=== PATIENT | female | born 1965 | race Caucasian/White ===

== ENCOUNTER → 2016-08-11 | Day surgery (SDC) | payer OTHER ==
[~2016-08-11] VITALS: Ht 154.9 cm; Wt 50.9 kg
[~2016-08-11] MED LIST: *RESP: ALBUTEROL 2.5 MG/3 ML NEB (PRN) PERIprocedural Use ONLY NEB ONE; ALBU0.08 NEB; ALBUAER3 INH; ALPR.5 PO; AMLO10 PO; CHLORHEXIDINE GLUCONATE 2 % 1 PACK (2 CLOTHS) TOP ONE; DILA100C PO; DO NOT ADM ANY ANTICOAGULANT DRUGS XX PRN; INSULIN HUMAN REGULAR 1,000 UNITS/10 ML VIAL SQ PRN; LACTATED RINGER'S 1000 ML INJ 1,000 ML IV ONE; LACTATED RINGER'S 1000 ML IV SCH; LEVA500T PO; LEVOFLOXACIN 500 MG PREMIX INJ 100 ML IV SCH; LISI-515 PO; MACR100C2 PO; METO50TA PO; METOPROLOL TARTRATE 25 MG TAB PO PRN; MONT10TA2 PO; ONDANSETRON HCL 4 MG/2 ML VIAL IV PUSH ONE; ONDANSETRON HCL 4 MG/2 ML VIAL IV PUSH PRN; PERC5TAB12 PO; PHEN0.4T PO; PHENYLEPH/NS 1000 MCG/10 ML SYR IV ONE; POVIDONE IODINE 7.5% SCRUB 118 ML BOTTLE TOPICAL ONE; PROPOFOL 200 MG/20 ML AMP IV ONE; SODIUM CHLORID 0.9% 500 ML IV SCH; VENL100T PO; XANA1TAB2 PO; ePHEDrine/NS 25 MG/5 ML SYR IV ONE; fentaNYL CITRATE 250 MCG/5 ML AMP ONE; oxyCODONE/ACETAMINOPHEN 5 MG/325 MG TAB PO PRN
[2016-08-11 11:28] VITALS: BP 127/80; PULSE 57; RESP 18; TEMP 97.7; O2SAT 98
[2016-08-11 11:29] LABS: AUTOMATED NEUTROPHIL # 5.1 TH/MM3 (1.8-7.7); BASOPHIL # 0.1 TH/MM3 (0-0.2); BASOPHIL % 0.8 % (0.0-2.0); EOSINOPHIL # 0.1 TH/MM3 (0-0.4); EOSINOPHIL % 1.4 % (0.0-4.0); HEMATOCRIT 43.2 % (35.0-46.0); HEMO FLAGS DIFF FINAL; LYMPH % 33.8 % (9.0-44.0); LYMPHOCYTE # 2.9 TH/MM3 (1.0-4.8); MEAN CELL VOLUME 89.5 FL (80.0-100.0); MEAN CORPUSCULAR HEMOGLOBIN 30.8 PG (27.0-34.0); MEAN CORPUSCULAR HGB CONC 34.4 % (32.0-36.0); MONO % 5.4 % (0.0-8.0); NEUT % 58.6 % (16.0-70.0); PLATELET COUNT 259 TH/MM3 (150-450); RED BLOOD COUNT 4.83 MIL/MM3 (4.00-5.30); RED CELL DISTRIBUTION WIDTH 14.4 % (11.6-17.2); WHITE BLOOD COUNT 8.7 TH/MM3 (4.0-11.0)
--- NOTE | 2016-08-11 14:15 | EKG ---
Date Performed: 08/11/2016 Time Performed: 11:33:17 PTAGE: 50 years EKG: Sinus rhythm POSSIBLE LEFT ATRIAL ENLARGEMENT INDETERMINATE AXIS BORDERLINE ECG PREVIOUS TRACING : 02/05/2015 10.40 Compared to prior tracing no significant change DOCTOR: Edgardo Pat Interpretating Date/Time 08/11/2016 14:14:32
--- NOTE | 2016-08-11 16:17 | PD.OP ---
Operative Report Date of Surgery: Aug 11, 2016 Preoperative Diagnosis: (1) Lesion of bladder Postoperative Diagnosis: (1) Lesion of bladder Procedure: Cystoscopy with fulguration and biopsy Anesthesia: General Surgeon: Oskar Stevens High Wire Artist(s): None Operation and Findings: Indication for procedure: Case of a pleasant 50-year-old female with a history of right distal ureteral CA who recently was noted to have several small lesions involving the bladder dome on cystoscopic evaluation. She presents today for cystoscopy, biopsy and fulguration. Operative procedure in detail: Patient was brought to the operating room suite and placed supine on the cystoscopy table. She was then placed under general anesthesia. She was then repositioned in the dorsolithotomy position and prepped and draped in normal sterile fashion. After appropriate timeout was undertaken I proceeded with cystoscopic evaluation utilizing the rigid cystoscope with the 20 Irish sheath and the 30 lens. Once again she was noted to have several slightly raised erythematous lesions involving the bladder dome. The cup biopsy forcep was utilized and 2 biopsies of this site were taken. The biopsy sites and the remainder of the small lesions were then fulgurated with the Bugbee electrode. The bladder was drained of irrigant fluid and the cystoscope was withdrawn. A 16 Irish 5 cc Boyd was then placed and connected to gravity drainage. Patient tolerated the procedure without complications and was transferred to the PACU in satisfactory condition. Oskar Stevens MD Aug 11, 2016 16:17
[2016-08-11 18:00] VITALS: BP 110/78; PULSE 70; RESP 20; TEMP 97.8; O2SAT 99
== END | disposition home or self-care (01) ==
LOC: HSDC 10:39
PROVIDERS: ATTEND Urology
DX: N32.9 Bladder disorder, unspecified (principal); N30.20 Other chronic cystitis without hematuria; I10 Essential (primary) hypertension
CPT/HCPCS: 00910; 52224; 85025; 88305; 93005; J1956; J2370; J2405; J3010; J7120; J7613; 94664

== ENCOUNTER 2016-10-13 06:21 | Day surgery (SDC) | payer OTHER ==
--- NOTE | 2016-10-07 10:29 | MH ---
cc: MAYURI SCHERER BLANCA C. M.D. DATE OF ADMISSION 10/13/2016 CHIEF COMPLAINT The patient will come for CT-guided right lung biopsy. HISTORY OF PRESENT ILLNESS Ms. Curtis is a 50-year-old female with a history of COPD, hypertension, seizure disorder, history of CA of the urethra. She has a surgery done before. The patient was recently admitted at [facility]. She had a CT scan of the chest done which shows three 2.2 cm pulmonary nodules in the right upper lobe and is suspicious for malignancy. She has a tiny pulmonary nodule in the right upper lobe measuring 3 mm and she has underlying central lobular emphysema. She has no hemoptysis. No DVT or pulmonary embolism. PAST MEDICAL HISTORY History of: 1. COPD 2. Hypertension 3. Seizure disorder all her life. 4. History of urethral surgery done by Dr. Stevens. 5. History of breast cyst surgery 6. History of lazy eye surgery MEDICATIONS She takes: 1. Albuterol nebulizer treatment with Qvar inhaler 2. Singulair 10 mg a day 3. Lisinopril 40 mg a day 4. Norvasc 10 mg a day 5. Metoprolol 50 mg a day 6. Dilantin 100 mg three times a day 7. Cymbalta once a day 8. Diclofenac once a day 9. Folic acid once a day ALLERGIES Allergic to KEFLEX. SOCIAL HISTORY She has 35 year history of smoking one and a half pack a day. No alcohol use. She uses marijuana. She worked in 1991. She is not working anymore. FAMILY HISTORY She has been for two to three years. She has three children. She has three brothers, one was stillbirth. She has two sisters. Mother with emphysema. Father is alive. REVIEW OF SYSTEMS She has lost 40 pounds of weight, has fatigue, mild shortness of breath, has joint pain. No DVT or pulmonary embolism. PHYSICAL EXAMINATION This is a somewhat well-nourished male not in acute distress. VITAL SIGNS: Blood pressure 140/72, heart rate 110, respirations 16, weight 108, oxygen saturation 96%. HEENT: Examination unremarkable. NECK: Supple. JVP not raised. CHEST: Equal breath, no rhonchi. CARDIOVASCULAR: S1 and S2 normal. ABDOMEN: Benign. EXTREMITIES: No edema. IMPRESSION 1. Right upper lobe 2.2 x 1.7 cm pulmonary nodule suspicious for malignancy. 2. Recent fall. 3. COPD 4. Nicotine use 5. Seizure disorder 6. Hypertension PLAN I discussed with the patient she will need a CT-guided biopsy of the lung. Explained the procedure and the complications including complication of anesthesia, pneumothorax requiring chest tube, bleeding, complication due to blood vessels, lungs nerves, arrhythmia, hypoxia. She understands very well and wants to proceed. We will scheduled her at [facility] for CT-guided biopsy. MD SHRADDHA Reeder/MICHAEL /11:21 PM /10:27 AM
[~2016-10-13] VITALS: Ht 154.9 cm; Wt 49.1 kg
[2016-10-13] VITALS (9 sets, daily range): BP systolic 111–178; BP diastolic 74–90; PULSE 51–72; RESP 14–20; TEMP 97.6–98.1; O2SAT 93–100
[~2016-10-13 06:21] MED LIST changes: -*RESP: ALBUTEROL 2.5 MG/3 ML NEB (PRN) PERIprocedural Use ONLY NEB ONE; -CHLORHEXIDINE GLUCONATE 2 % 1 PACK (2 CLOTHS) TOP ONE; -DO NOT ADM ANY ANTICOAGULANT DRUGS XX PRN; -INSULIN HUMAN REGULAR 1,000 UNITS/10 ML VIAL SQ PRN; -LACTATED RINGER'S 1000 ML INJ 1,000 ML IV ONE; -LACTATED RINGER'S 1000 ML IV SCH; -LEVA500T PO; -LEVOFLOXACIN 500 MG PREMIX INJ 100 ML IV SCH; -METOPROLOL TARTRATE 25 MG TAB PO PRN; -ONDANSETRON HCL 4 MG/2 ML VIAL IV PUSH ONE; -ONDANSETRON HCL 4 MG/2 ML VIAL IV PUSH PRN; -PHENYLEPH/NS 1000 MCG/10 ML SYR IV ONE; -POVIDONE IODINE 7.5% SCRUB 118 ML BOTTLE TOPICAL ONE; -PROPOFOL 200 MG/20 ML AMP IV ONE; -SODIUM CHLORID 0.9% 500 ML IV SCH; -VENL100T PO; -XANA1TAB2 PO; -ePHEDrine/NS 25 MG/5 ML SYR IV ONE; -fentaNYL CITRATE 250 MCG/5 ML AMP ONE; -oxyCODONE/ACETAMINOPHEN 5 MG/325 MG TAB PO PRN
[2016-10-13] MEDS ORDERED: XANA1TAB2 PO (06:49)
[2016-10-13] MEDS ORDERED: LIDOCAINE 1%/EPINEPHrine 1:100,000 SOLN 20 ML VIAL ONE (07:32)
[2016-10-13] MEDS ORDERED: fentaNYL CITRATE 250 MCG/5 ML AMP ONE (07:52)
[2016-10-13] MEDS ORDERED: MIDAZOLAM HCL 5 MG/5 ML VIAL ONE (07:53)
[2016-10-13] MEDS ORDERED: oxyCODONE/ACETAMINOPHEN 5 MG/325 MG TAB PO PRN (10:00)
--- NOTE | 2016-10-13 10:18 | RADRPT ---
EXAM DATE/TIME: 10/13/2016 08:27 [facility] COMPARISON: No previous studies available for comparison. Outside examination was reviewed. INDICATIONS : Right lung mass. SEDATION TIME: 30 minutes BIOPSY SITE: Left lung MEDICATION(S): 1.) 2 mg midazolam (Versed) IV 2.) 100 mcg fentanyl (Sublimaze) IV DEVICE(S): 1.) 20 gauge Temno core biopsy needle 2.) 18 gauge Alfredo blunt needle MEDICAL HISTORY : Carcinoma, not otherwise specified. SURGICAL HISTORY : None. ENCOUNTER: Initial ACUITY: 1 day PAIN SCORE: 0/10 LOCATION: Right chest A total of five core specimen(s) were obtained and sent to the laboratory for pathologic evaluation. PROCEDURE: 1. CT guided lung biopsy. 2. Conscious sedation with continuous EKG and oximetry monitoring. 3. EKG and oximetry remained stable throughout the procedure. Prior to the procedure informed consent was obtained. Prior outside examination was reviewed. Using a utomated exposure control and adjustment of the mA and/or kV according to patient size, radiation dos e was kept as low as reasonably achievable to obtain optimal diagnostic quality images. The site was prepped in a sterile fashion. Full sterile technique was used, including cap, mask, kaylene rile gloves and gown and a large sterile sheet. Hand hygiene and 2% chlorhexidine and/or betadine/al cohol prep was utilized per protocol for cutaneous antisepsis. The skin and subcutaneous tissues wer e infiltrated with local anesthetic solution. With CT guidance the bilobed right upper lobe lung nodule was localized. Biopsy was performed using t he prescribed needle as above. The patient's breathing caused the needle to repeatedly push out of t he lung. Adequate hemostasis was obtained with compression at the puncture site. Follow-up CT scan reveals no pneumothorax. There is moderate pulmonary hemorrhage. Conscious sedation was performed with the prescribed dosages and duration as above in the presence of an independent trained radiology nurse to assist in the monitoring of the patient. EKG and oximetry remained stable throughout the procedure. The patient tolerated the procedure well and there were no complications. The patient was sent to Radiology Outpatient Unit in stable condition. CONCLUSION: Uncomplicated CT guided biopsy of the right upper lobe lung nodule. Bart Hsu MD on October 13, 2016 at 10:15 Board Certified Radiologist. This report was verified electronically.
--- NOTE | 2016-10-13 11:09 | RADRPT ---
EXAM DATE/TIME: 10/13/2016 10:15 [facility] COMPARISON: CHEST PA & LAT, April 30, 2015, 10:20. CT NEEDLE BIOPSY LUNG, RIGHT, October 13, 2016, 8:27. INDICATIONS : Status post right lung biopsy. MEDICAL HISTORY : Chronic obstructive pulmonary disease. Hypertension SURGICAL HISTORY : Bladder cancer, Right ureter cancer. Bilateral breast cyst removal. ENCOUNTER: Subsequent ACUITY: 1 day PAIN SCORE: 3/10 LOCATION: Right chest FINDINGS: Portable AP expiratory view of the chest demonstrates no pneumothorax following recent right upper lo be lung nodule biopsy. There is consolidation in the right upper lobe related to pulmonary hemorrhage . CONCLUSION: No pneumothorax is visualized. Bart Hsu MD on October 13, 2016 at 11:07 Board Certified Radiologist. This report was verified electronically.
--- NOTE | 2016-10-13 12:07 | RADRPT ---
EXAM DATE/TIME: 10/13/2016 11:46 [facility] COMPARISON: CHEST EXPIRATION ONLY, October 13, 2016, 10:15. INDICATIONS : Post right side bx MEDICAL HISTORY : Chronic obstructive pulmonary disease. SURGICAL HISTORY : None. ENCOUNTER: Initial ACUITY: 1 day PAIN SCORE: 0/10 LOCATION: Bilateral cranial FINDINGS: Single view of the chest demonstrates no pneumothorax following recent right lung nodule biopsy. Ther e is stable consolidation in the right upper lobe. CONCLUSION: 1. No pneumothorax is visualized. 2. Stable pulmonary hemorrhage in the right upper lobe. Bart Hsu MD on October 13, 2016 at 12:03 Board Certified Radiologist. This report was verified electronically.
== END 2016-10-13 13:34 | disposition home or self-care (01) ==
LOC: HRAD 06:21 → HRIP 06:22 → HRAD 13:34
PROVIDERS: ATTEND Specialist
DX: R91.1 Solitary pulmonary nodule (principal); J44.9 Chronic obstructive pulmonary disease, unspecified; I10 Essential (primary) hypertension; G40.909 Epilepsy, unspecified, not intractable, without status epilepticus; R04.89 Hemorrhage from other sites in respiratory passages; Z87.891 Personal history of nicotine dependence
CPT/HCPCS: 32405; 71010; 77012; 88305; 88341; 88342; J2250; J3010

== ENCOUNTER 2017-02-12 05:20 | Day surgery (SDC) | payer OTHER ==
[~2017-02-12] VITALS: Ht 152.4 cm; Wt 50.0 kg
[~2017-02-12 05:20] MED LIST changes: -ALPR.5 PO; +CIPR-9 PO; -MACR100C2 PO; -MONT10TA2 PO; -PERC5TAB12 PO; -PHEN0.4T PO; +XANA1TAB2 PO
[2017-02-12 06:47] VITALS: BP 150/93; PULSE 71; RESP 20; TEMP 97.9; O2SAT 98
[2017-02-12] MEDS ORDERED: DIAZ5 PO (06:52)
[2017-02-12] MEDS ORDERED: SODIUM CHLORIDE 0.9% 1000 ML IV SCH (07:00)
[2017-02-12 07:08] LABS: AUTOMATED NEUTROPHIL # 4.1 TH/MM3 (1.8-7.7); BASOPHIL # 0.1 TH/MM3 (0-0.2); BASOPHIL % 1.2 % (0.0-2.0); EOSINOPHIL # 0.4 TH/MM3 (0-0.4); EOSINOPHIL % 5.7 % (0.0-4.0); HEMATOCRIT 38.1 % (35.0-46.0); HEMO FLAGS DIFF FINAL; LYMPHOCYTE # 2.3 TH/MM3 (1.0-4.8); MEAN CELL VOLUME 94.2 FL (80.0-100.0); MEAN CORPUSCULAR HEMOGLOBIN 30.5 PG (27.0-34.0); MEAN CORPUSCULAR HGB CONC 32.4 % (32.0-36.0); MONO % 8.5 % (0.0-8.0); NEUT % 54.6 % (16.0-70.0); PLATELET COUNT 299 TH/MM3 (150-450); RED BLOOD COUNT 4.05 MIL/MM3 (4.00-5.30); RED CELL DISTRIBUTION WIDTH 13.6 % (11.6-17.2); WHITE BLOOD COUNT 7.6 TH/MM3 (4.0-11.0)
[2017-02-12 07:15] LABS: APTT (PATIENT) 27.1 SEC (24.3-30.1); INTERNATIONAL NORMALIZED RATIO 0.9 RATIO; PROTHROMBIN TIME - PATIENT 10.2 SEC (9.8-11.6)
[2017-02-12] MEDS ORDERED: VANCOMYCIN 1000 MG/NS 250 ML - implanted port/tunneled catheter IV SCH ×2 (07:30)
[2017-02-12] MEDS ORDERED: MIDAZOLAM HCL 2 MG/2 ML VIAL ONE (08:00)
[2017-02-12] MEDS ORDERED: SODIUM CHLORIDE 0.9% FLUSH 10 ML FLUSH IVF PRN (08:45)
--- NOTE | 2017-02-12 08:46 | PD.RAD ---
Post Procedure Progress Note Pre Procedure Diagnosis: (1) Primary cancer of right ureter Post Procedure Diagnosis: (1) Primary cancer of right ureter Procedure Date: Feb 12, 2017 Supervising Radiologist: Jason Chaudhry Estimated blood loss: 3CC Anesthesia: Local, Conscious Sedation Plan of Activity Patient to Unit: ROPU Patient Condition: Good Additional Comments: Port placed via the right IJ catheter in good position OK for use. Full dictated report to follow in PACS See PACS Report for procedural detail/treatment Jason Chaudhry MD Feb 12, 2017 08:46
[2017-02-12 08:55] VITALS: BP 157/98; PULSE 65; RESP 16; TEMP 97.8; O2SAT 94
[2017-02-12 09:10] VITALS: BP 145/98; PULSE 69; RESP 16; O2SAT 90
[2017-02-12 09:40] VITALS: BP 163/98; PULSE 71; RESP 16; O2SAT 99
[2017-02-12 10:10] VITALS: BP 180/94; PULSE 80; RESP 18; O2SAT 98
--- NOTE | 2017-02-12 12:31 | RADRPT ---
EXAM DATE/TIME: 02/12/2017 08:11 [facility] COMPARISON: No previous studies available for comparison. INDICATIONS : Patient with lung cancer in need of [id number] placement. MEDICAL HISTORY : COPD, GERD, Chronic back pain, HLD, Seizure disorder, HTN, Anemia, Ureter cancer SURGICAL HISTORY : Lung biopsy, Partial cystectomy neurectomy, Right ureteral tumor resection, Right upper and middle lo bectomy ENCOUNTER: Initial ACUITY: 4-6 months PAIN SCORE: 0/10 FLUORO TIME: 0.3 minutes IMAGE SERIES: 1 SEDATION TIME: 30 minutes ACCESS: Right internal jugular vein SEDATION: 1.) 2 mg midazolam (Versed) IV 2.) 50 mcg fentanyl (Sublimaze) IV Prophylactic antibiotics were administered with appropriate pre-procedure timing. Vancomycin within 2 hours of procedure, Ancef (or alternative) within 1 hour of procedure. DEVICE: 1. 8 Cuban single lumen Smart power port with vortex PROCEDURE : 1. Continuous pulse oximetry and EKG monitoring. 2. Intravenous conscious sedation. 3. Ultrasound guidance for venous access. 4. Fluoroscopic guided implantable central venous port placement. The patient was placed supine. The neck was prepped in sterile fashion. Full sterile technique was u sed, including cap, mask, sterile gloves and gown, and a large sterile sheet. Hand hygiene and 2% ch lorhexidine Betadine was utilized per protocol for cutaneous antisepsis with appropriate dry time for site. Sterile gel and sterile probe cover were utilized for ultrasound guidance. The skin and sub cutaneous tissues were infiltrated with local anesthetic solution. Under direct ultrasound guidance, central venous access was accomplished in the targeted vessel. The ultrasound images depicting access guidance were stored and saved to PACS for permanent record. A s ubcutaneous pocket was created using blunt dissection. The port was introduced to the pocket. The c atheter tubing was fed through a subcutaneous tunnel to the venotomy site. The catheter tubing was c ut to a suitable length and then was introduced through a valved Peel-Away sheath and positioned with catheter tubing tip at the cavo-atrial junction level. The pocket incision was closed with subcutic ular Vicryl suture. Steri-Strips were applied. The port was flushed and locked with heparin solutio n per protocol. Sterile dressing was applied to the site. The patient tolerated the procedure well. Conscious sedation was performed with the prescribed dosages and duration as above in the presence of an independent trained radiology nurse to assist in the monitoring of the patient. EKG and oximetry remained stable throughout the procedure. The patient tolerated the procedure well and there were no complications. The patient was sent to post anesthesia recovery in stable condition. CONCLUSION: Uncomplicated ultrasound and fluoroscopic guided implanted central venous port catheter placement as described in detail above. An 8 Cuban Power port was placed. Jason Chaudhry MD on February 12, 2017 at 12:30 Board Certified Radiologist. This report was verified electronically.
== END 2017-02-12 11:00 | disposition home or self-care (01) ==
LOC: HROP 05:20 → HRIP 05:20 → HROP 11:00
PROVIDERS: ATTEND Radiology Body Imaging
DX: Z45.2 Encounter for adjustment and management of vascular access device (principal); C34.90 Malignant neoplasm of unspecified part of unspecified bronchus or lung; C66.1 Malignant neoplasm of right ureter; I10 Essential (primary) hypertension; E78.5 Hyperlipidemia, unspecified; J44.9 Chronic obstructive pulmonary disease, unspecified; K21.9 Gastro-esophageal reflux disease without esophagitis; G40.909 Epilepsy, unspecified, not intractable, without status epilepticus; M54.5 Low back pain; G89.29 Other chronic pain; Z79.01 Long term (current) use of anticoagulants
CPT/HCPCS: 36561; 76937; 77001; 85025; 85610; 85730; 99152; 99153; C1788; J1642; J2250; J3010; J3370; J7030; J7050

== ENCOUNTER → 2017-02-17 | Outpatient (CLI) | payer OTHER ==
[~2017-02-17] MED LIST changes: -CIPR-9 PO; +DIAZ5 PO; +IOHEXOL 350 MG/ML 10 ML VIAL (for RAD DIAG) IVCONTRAST ONE; +LIDO1PAD52 TOPICAL; +PERC5TAB12 PO; -XANA1TAB2 PO
--- NOTE | 2017-02-17 15:14 | RADRPT ---
EXAM DATE/TIME: 02/17/2017 13:47 [facility] COMPARISON: No previous studies available for comparison. INDICATIONS : Follow up surgery for lung cancer IV CONTRAST: 80 cc Omnipaque 350 (iohexol) IV ; Cumulative dose for multiple exams. RADIATION DOSE: 5.39 CTDIvol (mGy) ; Combined studies - Thorax/Abdomen/Pelvis MEDICAL HISTORY : Chronic obstructive pulmonary disease. Carcinoma, lung. ureter cancer SURGICAL HISTORY : Lobectomy. Right ureter portion of bladder removed ENCOUNTER: Subsequent ACUITY: 1 month PAIN SCALE: 0/10 LOCATION: chest TECHNIQUE: Volumetric scanning of the chest was performed. Using automated exposure control and adjustment of t he mA and/or kV according to patient size, radiation dose was kept as low as reasonably achievable to obtain optimal diagnostic quality images. DICOM format image data is available electronically for review and comparison. Follow-up recommendations for detected pulmonary nodules are based at a minimum on nodule size and pa tient risk factors according to Fleischner Society Guidelines. FINDINGS: The left lung is clear. There is a large hydropneumothorax identified on the right. There are uziel at the right hilum and a staple line is seen with findings consistent with right upper and middle lo bectomy. There is no mediastinal shift. There is no adenopathy. Osseous structures demonstrate post t horacotomy changes right ribs. CONCLUSION: Interval right upper and middle lobectomy with large hydropneumothorax. Shaquille Young MD on February 17, 2017 at 15:09 Board Certified Radiologist. This report was verified electronically.
--- NOTE | 2017-02-17 15:16 | RADRPT ---
EXAM DATE/TIME: 02/17/2017 13:47 [facility] COMPARISON: CT ABDOMEN & PELVIS W/O CONTRAST, January 19, 2015, 10:29. CT THORAX W CONTRAST, February 17, 2017, 13:47. INDICATIONS : Follow up ureter cancer IV CONTRAST: 80 cc Omnipaque 350 (iohexol) IV ; Cumulative dose for multiple exams. ORAL CONTRAST: Prescribed oral contrast ingested. RADIATION DOSE: 5.39 CTDIvol (mGy) ; Combined studies - Thorax/Abdomen/Pelvis MEDICAL HISTORY : Carcinoma, lung. Chronic obstructive pulmonary disease. Right ureter cancer SURGICAL HISTORY : Lobectomy. Right ureter and a portion of the bladder ENCOUNTER: Initial ACUITY: 1 day PAIN SCALE: 0/10 LOCATION: Abdomen TECHNIQUE: Volumetric scanning of the abdomen and pelvis was performed. Using automated exposure control and ad justment of the mA and/or kV according to patient size, radiation dose was kept as low as reasonably achievable to obtain optimal diagnostic quality images. DICOM format image data is available electro nically for review and comparison. FINDINGS: The patient has undergone interval lobectomy on the right with a hydropneumothorax seen. Visualized l eft lung is clear. Osseous structures are intact. Liver, gallbladder, spleen, pancreas, left kidney, right adrenal unremarkable. There is scarring of the right kidney with cortical thinning noted. A lef t adrenal mass is identified measuring 2.1 x 1.8 cm in AP and transverse dimension. Stomach, small reyes wel, large bowel, urinary bladder, uterus and adnexa are unremarkable. Atherosclerotic calcifications of the aorta and iliac vessels. CONCLUSION: 1. Atherosclerosis. 2. Post surgical changes right hemithorax. Hydropneumothorax identified with interval lobectomy. 3. Right renal scarring. 4. Left adrenal adenoma. Shaquille Young MD on February 17, 2017 at 15:12 Board Certified Radiologist. This report was verified electronically.
== END ==
LOC: HRAD 11:54
DX: C34.90 Malignant neoplasm of unspecified part of unspecified bronchus or lung (principal)
CPT/HCPCS: 71260; 74177; Q9967

== ENCOUNTER 2017-02-22 03:03 | Emergency (ER) | payer OTHER ==
[~2017-02-22] VITALS: Ht 152.4 cm; Wt 48.0 kg
[~2017-02-22 03:03] MED LIST changes: -IOHEXOL 350 MG/ML 10 ML VIAL (for RAD DIAG) IVCONTRAST ONE; -LIDO1PAD52 TOPICAL; -PERC5TAB12 PO
[2017-02-22 03:05] VITALS: BP 153/76; PULSE 72; RESP 20; TEMP 98; O2SAT 99
[2017-02-22] MEDS ORDERED: MORPHINE SULFATE 4 MG/ML INJ IV PUSH ONE (03:30)
[2017-02-22] MEDS ORDERED: SODIUM CHLORIDE 0.9% FLUSH 10 ML FLUSH IVF PRN (03:30)
[2017-02-22] MEDS ORDERED: RESP: ALBUTEROL 2.5 MG/IPRATROPIUM 0.5 MG NEB (SCH) INH ONE (03:30)
--- NOTE | 2017-02-22 04:05 | PD ---
HPI Chief Complaint: Respiratory Distress Time Seen by Provider: 03:22 Travel History International Travel<30 days: No Contact w/Intl Traveler<30days: No Traveled to known affect area: No History of Present Illness HPI This is a 51-year-old female who has a history of non-small cell lung cancer who had a lobectomy on the right in December of this year who presents to the emergency department with 5 days of increasing shortness of breath on the right , constant, moderate severity, associated with some productive cough with yellow sputum. She denies any fevers or chills. She had a CT scan performed 3 days ago which said that she had fluid on her lungs and she was told that she needs to have it drained. She's been having a lot of trouble with her insurance. She got cleared to have her surgery at [facility] but she says her insurance doesn't cover procedures done outside of [place] normally. She followed up with her oncologist who told her to come here to be seen for possible drainage of this fluid collection. PFSH Past Medical History Asthma: Yes Anxiety: Yes Cancer: Yes (ureteral cancer, lung nonsmall cell) Cardiovascular Problems: No COPD: Yes Diabetes: No Diminished Hearing: No Endocrine: No Gastrointestinal Disorders: Yes (GERD) GERD: Yes Genitourinary: Yes (frequent UTI) Hepatitis: Yes (hepatitis A) Hiatal Hernia: No Hypertension: Yes Immune Disorder: No Musculoskeletal: Yes (scoliosis) Neurologic: Yes (seizures) Psychiatric: Yes (Anxiety) Reproductive: No Respiratory: Yes (COPD) Immunizations Current: Yes Migraines: Yes (HX OF SINCE AGE 13 ) Seizures: Yes (EPILEPSY STARTED IN CHILDHOOD) Thyroid Disease: No Tetanus Vaccination: Unknown Influenza Vaccination: Yes ?: Not Menopausal: Yes : 3 Para: 3 Tubal Ligation: Yes Past Surgical History Abdominal Surgery: Yes (tubaligation, appendectomy, ureteral cancer) AICD: No Appendectomy: Yes Body Medical Devices: RT KIDNEY STENT Cardiac Surgery: No Ear Surgery: No Endocrine Surgery: No Eye Surgery: Yes (lazy eye) Genitourinary Surgery: Yes (ureteral cancer) Gynecologic Surgery: Yes (tubaligation) Joint Replacement: No Neurologic Surgery: No Oral Surgery: Yes (wisdom tooth) Pacemaker: No Thoracic Surgery: Yes (RIGHT THORACOTOMY/LOBECTOMY) Other Surgery: Yes (CYST REMOVAL R BREAT / bladder, ureter sx on 03/27,) Social History Alcohol Use: No Tobacco Use: No Substance Use: No Allergies-Medications (Allergen,Severity, Reaction): Coded Allergies: cephalexin (Unverified Allergy, Severe, Rash, LIPS SWELLED, 02/12/17) Reported Meds & Prescriptions Reported Meds & Active Scripts Active Reported Valium (Diazepam) 5 Mg Tab 5 Mg PO BID Metoprolol Tartrate 50 Mg Tab 50 Mg PO DAILY Proair Hfa 8.5 GM Inh (Albuterol Sulfate) 90 Mcg/Act Aer 2 Puff INH BID PRN 108 mcg/actuation Albuterol Neb (Albuterol Sulfate) 2.5 Mg/3 Ml Neb 2.5 Mg NEB BID Dilantin (Phenytoin Extended) 100 Mg Cap 100 Mg PO TID Lisinopril 20 Mg Tab 20 Mg PO DAILY Norvasc (Amlodipine Besylate) 10 Mg Tab 10 Mg PO DAILY Review of Systems Except as stated in HPI: all other systems reviewed are Neg Physical Exam Narrative GENERAL:Well appearing, no acute distress SKIN: Surgical scar in the right back well healing. HEAD: Atraumatic. Normocephalic. EYES: Pupils equal and round. No injection or drainage. ENT: Moist mucous membranes NECK: Trachea midline. CARDIOVASCULAR: Regular rate and rhythm. No murmur appreciated. RESPIRATORY: Tachypneic. Absent breath sounds on the right. GASTROINTESTINAL: Abdomen soft, non-tender, nondistended. MUSCULOSKELETAL: No obvious deformities. NEUROLOGICAL: Awake and alert. No obvious cranial nerve deficits. Moving all extremities. PSYCHIATRIC: Appropriate mood and affect; insight and judgment normal. Data Data Last Documented VS Vital Signs Date Time Temp Pulse Resp B/P (MAP) Pulse Ox O2 Delivery O2 Flow Rate FiO2 02/22/17 05:27 64 22 111/77 (88) 100 Nasal Cannula 2.00 02/22/17 03:05 98.0 Orders Orders Complete Blood Count With Diff (02/22/17 03:29) Comprehensive Metabolic Panel (02/22/17 03:29) B-Type Natriuretic Peptide (02/22/17 03:29) Act Partial Throm Time (Ptt) (02/22/17 03:29) Prothrombin Time / Inr (Pt) (02/22/17 03:29) Troponin I (02/22/17 03:29) Iv Access Insert/Monitor (02/22/17 03:29) Electrocardiogram (02/22/17 03:29) Ecg Monitoring (02/22/17 03:29) Oximetry (02/22/17 03:29) Oxygen Administration (02/22/17 03:29) Chest, Single Ap (02/22/17 03:29) Sodium Chloride 0.9% Flush (Ns Flush) (02/22/17 03:30) Albuterol-Ipratropium Neb (Duoneb Neb) (02/22/17 03:30) Morphine Inj (Morphine Inj) (02/22/17 03:30) Ct Thorax/ Chest W Iv Contrast (02/22/17 ) Iohexol 350 Inj (Omnipaque 350 Inj) (02/22/17 04:49) Labs Laboratory Tests Test 02/22/17 03:10 White Blood Count 10.3 TH/MM3 Red Blood Count 3.96 MIL/MM3 Hemoglobin 12.4 GM/DL Hematocrit 37.1 % Mean Corpuscular Volume 93.8 FL Mean Corpuscular Hemoglobin 31.4 PG Mean Corpuscular Hemoglobin Concent 33.5 % Red Cell Distribution Width 14.0 % Platelet Count 355 TH/MM3 Mean Platelet Volume 6.8 FL CBC Comment AUTO DIFF Differential Total Cells Counted 100 Neutrophils % (Manual) 56 % Band Neutrophils % 1 % Lymphocytes % 26 % Monocytes % 8 % Eosinophils % 8 % Neutrophils # (Manual) 5.9 TH/MM3 Differential Comment FINAL DIFF MANUAL Plasma Cells 1 % Platelet Estimate NORMAL Platelet Morphology Comment NORMAL Red Cell Morphology Comment NORMAL Prothrombin Time 10.2 SEC Prothromb Time International Ratio 0.9 RATIO Activated Partial Thromboplast Time 27.1 SEC Blood Urea Nitrogen 20 MG/DL Creatinine 0.79 MG/DL Random Glucose 88 MG/DL Total Protein 7.1 GM/DL Albumin 3.1 GM/DL Calcium Level 8.7 MG/DL Alkaline Phosphatase 115 U/L Aspartate Amino Transf (AST/SGOT) 15 U/L Alanine Aminotransferase (ALT/SGPT) 21 U/L Total Bilirubin 0.1 MG/DL Sodium Level 141 MEQ/L Potassium Level 4.4 MEQ/L Chloride Level 109 MEQ/L Carbon Dioxide Level 25.6 MEQ/L Anion Gap 6 MEQ/L Estimat Glomerular Filtration Rate 76 ML/MIN Troponin I LESS THAN 0.02 NG/ML B-Type Natriuretic Peptide 29 PG/ML MDM Medical Decision Making Medical Screen Exam Complete: Yes Emergency Medical Condition: Yes Interpretation(s) Afebrile, no tachycardia, hypertensive, no hypoxia No leukocytosis Electrolytes are reassuring BNP is [address] of the chest: Interval improvement of hydropneumothorax Differential Diagnosis Hydrothorax, pneumothorax, congestive heart failure, COPD, pneumonia Narrative Course This is a 51-year-old female who presents to the emergency department with increasing pain and shortness of breath on her right side. She had a right upper and middle lobectomy on January [address] Vasquez at [facility]. She was placed in a monitor and an IV was established. Labs are obtained which were reassuring. 5 days ago she had a CT of the chest which demonstrated a large hydropneumothorax. At that time Dr. Vasquez recommended that she come in and have interventional radiology do a thoracentesis. We repeated his CT today. It shows interval improvement in the patient's hydropneumothorax. Her oxygen saturation is 100% on room air. I spoke to Dr. Fleming because I was unable to get in touch with Dr. Vasquez and he recommended that we defer intervention at this time and she follow-up with Dr. Vasquez in clinic. I talked to the patient and she's happy with this plan. She'll be discharged with more pain control and lidocaine patches. Diagnosis Primary Impression: Hydropneumothorax Patient Instructions: General Instructions Additional Instructions: If you develop severe chest pain, shortness of breath, sweating, lightheadedness , dizziness or difficulty breathing return to the emergency department immediately. The size of your hydropneumothorax is significantly improving without intervention. Follow-up with Dr. Vasquez in clinic without fail. Med/Other Pt SpecificInfo: Prescription(s) given Scripts Lidocaine Patch 12 HR (Lidocaine Patch 12 HR) 5 % Patch 1 PATCH TOPICAL DAILY Y for PAIN, #1 BOX 0 Refills Remove patch after 12 hours Prov: Bren Olivares MD 02/22/17 Oxycodone-Acetaminophen (Percocet) 5-325 mg Tab 1-2 TAB PO Q6H Y for PAIN, #15 TAB 0 Refills Prov: Bren Olivares MD 02/22/17 Disposition: 01 DISCHARGE HOME Condition: Stable Bren Olivares MD Feb 22, 2017 04:05
--- NOTE | 2017-02-22 04:05 | RADRPT ---
EXAM DATE/TIME: 02/22/2017 03:36 CORRECTION Corrected on: February 22, 2017; [facility] COMPARISON: CHEST EXPIRATION ONLY, October 13, 2016, 11:46. INDICATIONS : Shortness of breath with pain. MEDICAL HISTORY : Chronic obstructive pulmonary disease. Carcinoma, lung. SURGICAL HISTORY : Lobectomy. ENCOUNTER: Initial ACUITY: 1 day PAIN SCORE: 6/10 LOCATION: Right chest FINDINGS: There is partial right lung resection with elevated right hemidiaphragm probable small right effusion . There is a small right pneumothorax as well, improved from CT on February 17. Right Oxorpa-g-Bwrv in superior vena cava. Minimal basilar atelectasis. Subacute right-sided rib fractures. CONCLUSION: There is a small right-sided pneumothorax and right effusion, improved from CT exam on February 17. Subacute right-sided rib fractures involving at least the right seventh and eighth ribs. Findings dis cussed with Dr. Olivares. Cleveland Blue MD on February 22, 2017 at 4:01 Board Certified Radiologist. This report was verified electronically. Cleveland Blue MD on February 22, 2017 at 4:12 Board Certified Radiologist. This report was verified electronically.
[2017-02-22 04:16] LABS: HEMATOCRIT 37.1 % (35.0-46.0); MEAN CELL VOLUME 93.8 FL (80.0-100.0); MEAN CORPUSCULAR HEMOGLOBIN 31.4 PG (27.0-34.0); MEAN CORPUSCULAR HGB CONC 33.5 % (32.0-36.0); PLATELET COUNT 355 TH/MM3 (150-450); RED BLOOD COUNT 3.96 MIL/MM3 (4.00-5.30); WHITE BLOOD COUNT 10.3 TH/MM3 (4.0-11.0)
[2017-02-22 04:30] LABS: APTT (PATIENT) 27.1 SEC (24.3-30.1); INTERNATIONAL NORMALIZED RATIO 0.9 RATIO; PROTHROMBIN TIME - PATIENT 10.2 SEC (9.8-11.6)
[2017-02-22 04:35] LABS: ANION GAP 6 MEQ/L (5-15); AST (GOT) 15 U/L (15-37); BICARBONATE 25.6 MEQ/L (21.0-32.0); BLOOD UREA NITROGEN 20 MG/DL (7-18); CHLORIDE 109 MEQ/L (98-107); GLOMERULAR FILTRATION RATE 76 ML/MIN (>89); POTASSIUM 4.4 MEQ/L (3.5-5.1); SODIUM (NA) 141 MEQ/L (136-145)
[2017-02-22 04:40] LABS: ALKALINE PHOSPHATASE 115 U/L (45-117); ALT (GPT) 21 U/L (10-53); HEMO FLAGS AUTO DIFF; TOTAL BILIRUBIN ADULT 0.1 MG/DL (0.2-1.0)
[2017-02-22] MEDS ORDERED: IOHEXOL 350 MG/ML 10 ML VIAL (for RAD DIAG) IVCONTRAST ONE (04:49)
--- NOTE | 2017-02-22 05:09 | RADRPT ---
EXAM DATE/TIME: 02/22/2017 04:47 [facility] COMPARISON: CT THORAX W CONTRAST, February 17, 2017, 13:47. INDICATIONS : Pneumothorax. Complains of chest pain and shortness of breath. IV CONTRAST: 75 cc Omnipaque 350 (iohexol) IV RADIATION DOSE: 3.33 CTDIvol (mGy) MEDICAL HISTORY : Chronic obstructive pulmonary disease. Gastroesophageal reflux disease. Hypertension.Lung cancer. Ure teral cancer. Hepatitis A. Seizure. SURGICAL HISTORY : Appendectomy. Tubal ligation.Right lobectomy. ENCOUNTER: Initial ACUITY: 4 - 6 days PAIN SCALE: 9/10 LOCATION: Right chest TECHNIQUE: Volumetric scanning of the chest was performed. Using automated exposure control and adjustment of t he mA and/or kV according to patient size, radiation dose was kept as low as reasonably achievable to obtain optimal diagnostic quality images. DICOM format image data is available electronically for review and comparison. Follow-up recommendations for detected pulmonary nodules are based at a minimum on nodule size and pa tient risk factors according to Fleischner Society Guidelines. FINDINGS: Compare February 17. There is a persistent right sided hydropneumothorax but this has decreased sinc e the prior exam. At the level of ta pleural fluid thickness is about 2.3 cm compared with previo us measurement of 3.4 cm. Anterior pneumothorax is also decreased in size. There is a small focus of distal airway disease left lower lobe worsening finding since prior exam. Right Noovjs-l-Eecd is in superior vena cava. No acute findings in the upper abdomen. Subacute right seventh and eighth rib fractures. CONCLUSION: 1. Right-sided hydropneumothorax decreased in size from February 17. Nondisplaced subacute right seventh and eighth rib fractures. Minimal distal airway disease left lung base. Cleveland Blue MD on February 22, 2017 at 5:03 Board Certified Radiologist. This report was verified electronically.
[2017-02-22 05:27] VITALS: BP 111/77; PULSE 64; RESP 22; O2SAT 100
[2017-02-22 05:45] LABS: BANDS 1 % (0-6); EOSINOPHILS 8 % (0-4); NEUTROPHIL # MANUAL DIFF 5.9 TH/MM3 (1.8-7.7); PLASMA CELLS 1 % (0-0); PLATELET ESTIMATE SMEAR NORMAL (NORMAL); PLATELET MORPHOLOGY NORMAL (NORMAL); POLYS (SEG NEUTROPHILS) 56 % (16-70); SCAN/DIFF FINAL DIFF MANUAL; WBC DIFF SAMPLE 100
[2017-02-22] MEDS ORDERED: PERC5TAB12 PO (06:35)
[2017-02-22] MEDS ORDERED: LIDO1PAD52 TOPICAL (06:35)
[2017-02-22 07:00] VITALS: BP 118/74
--- NOTE | 2017-02-22 07:01 | EKG ---
Date Performed: 02/22/2017 Time Performed: 03:56:21 PTAGE: 51 years EKG: Sinus rhythm NORMAL ECG NO PREVIOUS TRACING DOCTOR: Andi Barnes Interpretating Date/Time 02/22/2017 07:01:31
== END 2017-02-22 07:04 | disposition home or self-care (01) ==
LOC: NEPE 03:03
DX: J94.8 Other specified pleural conditions (principal); J44.9 Chronic obstructive pulmonary disease, unspecified; I10 Essential (primary) hypertension
CPT/HCPCS: 71010; 71260; 80053; 83880; 84484; 85007; 85027; 85610; 85730; 93005; 94664; 96374; 99285; J2270; Q9967

== ENCOUNTER 2017-03-06 07:30 | Day surgery (SDC) | payer OTHER ==
[2017-03-06] VITALS (7 sets, daily range): BP systolic 109–143; BP diastolic 78–88; PULSE 61–80; RESP 18–20; TEMP 97–98.3; O2SAT 91–100
[~2017-03-06 07:30] MED LIST changes: +LIDO1PAD52 TOPICAL; +PERC5TAB12 PO
[2017-03-06] MEDS ORDERED: LIDOCAINE HCL 1% 20 ML VIAL ONE (09:50)
--- NOTE | 2017-03-06 09:59 | RADRPT ---
EXAM DATE/TIME: 03/06/2017 09:20 [facility] COMPARISON: CHEST SINGLE AP, February 22, 2017, 3:36. CT THORAX W CONTRAST, February 22, 2017, 4:47. CHEST EXPIRA TION ONLY, October 13, 2016, 11:46 INDICATIONS : Post right thoracentesis. MEDICAL HISTORY : Chronic obstructive pulmonary disease. Carcinoma, lung. Hepatitis A. Gastroesophageal reflux dise ase. Hypertension, Ureteral cancer, seizures SURGICAL HISTORY : Appendectomy. Tubal ligation. right lobectomy, infusaport ENCOUNTER: Subsequent ACUITY: 1 day PAIN SCORE: 0/10 LOCATION: Right chest FINDINGS: A single frontal expiratory view of the chest was performed. The lungs are symmetrically aerated and clear. No evidence of pneumothorax. Mediastinal structures are in the midline. The cardio-mediastinal contours and bronchopulmonary markings are unremarkable for an expiratory exam . Osseous structures are intact. CONCLUSION: Small 8 mm right pneumothorax. Repeat film 2 hours suggested. Regan Chaudhry MD FACR on March 06, 2017 at 9:54 Board Certified Radiologist. This report was verified electronically.
--- NOTE | 2017-03-06 10:14 | RADRPT ---
EXAM DATE/TIME: 03/06/2017 08:57 [facility] COMPARISON: CT THORAX W CONTRAST, February 22, 2017, 4:47. INDICATIONS : Right pleural effusion. MEDICAL HISTORY : Hepatitis A. Carcinoma, lung. Seizures. Migraines. Angina. HTN. COPD. Asthma. GERD. Ureteral cancer. PID. Hydronephrosis. Renal disease. Frequent UTIs. Scolosis. Anxiety. Depression. SURGICAL HISTORY : Tubal ligation. Appendectomy. Surgery for lazy eye. Right thoracotomy/lobectomy. Bilateral breast cy sts removed. Ureter surgery. ENCOUNTER: Initial ACUITY: 2 weeks PAIN SCORE: 4/10 LOCATION: Right chest FLUID: Total volume of 500 cc of clear, yellow fluid was removed. Fluid was discarded. Thoracentesis was therapeutic only. TECHNIQUE: 1. Ultrasound guidance for thoracentesis. 2. Thoracentesis. The risks, benefits, and alternatives to ultrasound guided thoracentesis were explained to the patien t in lay simple terms, including the risk of bleeding and infection. Written and verbal informed con sent was obtained. Appropriate area for thoracentesis was marked under ultrasound guidance with the patient in the uprig ht position. Overlying skin was prepped and draped in the usual sterile fashion and with local anest hetic, a dermatotomy was made with an 11 blade scalpel. A 6 Dominican thoracentesis catheter was placed in the pleural space and fluid was removed. Catheter was then removed and a sterile dressing applie d. There were no immediate complications. The patient tolerated the procedure well and the left the ultrasound suite in stable condition. Chest radiograph is to be obtained. CONCLUSION: Uncomplicated ultrasound guided right thoracentesis. Farhat Escobedo Jr., MD on March 06, 2017 at 10:12 Board Certified Radiologist. This report was verified electronically.
--- NOTE | 2017-03-06 12:04 | RADRPT ---
EXAM DATE/TIME: 03/06/2017 11:55 [facility] COMPARISON: CHEST EXPIRATION ONLY, March 06, 2017, 9:20. INDICATIONS : S/P Thoracentesis. MEDICAL HISTORY : Hepatitis A. Carcinoma, lung. Seizures. Migraines. Angina. HTN. COPD.Asthma. GERD. Ureteral cancer. P ID. Hydronephrosis. Renal disease. Frequent UTIs. Scolosis. SURGICAL HISTORY : Right thoracotomy/lobectomy. Bilateral breast cysts removed. ENCOUNTER: Initial ACUITY: 1 day PAIN SCORE: Non-responsive. LOCATION: Bilateral chest FINDINGS: Pneumothorax has resolved. Ecannh-h-Geri good position. Lungs are clear. CONCLUSION: Negative for pneumothorax.. Regan Chaudhry MD FACR on March 06, 2017 at 12:02 Board Certified Radiologist. This report was verified electronically.
== END 2017-03-06 14:30 | disposition home or self-care (01) ==
LOC: HRAD 07:30 → HRIP 07:31 → HRAD 14:30
PROVIDERS: ATTEND Radiology Body Imaging
DX: J90 Pleural effusion, not elsewhere classified (principal); C34.90 Malignant neoplasm of unspecified part of unspecified bronchus or lung; J44.9 Chronic obstructive pulmonary disease, unspecified; I10 Essential (primary) hypertension; F41.9 Anxiety disorder, unspecified; K21.9 Gastro-esophageal reflux disease without esophagitis
CPT/HCPCS: 32555; 71010; C1729